=== PATIENT | male | born 1955 | race African-American/Black ===

== ENCOUNTER 2021-01-22 08:52 | Emergency (ER) | payer MEDICARE, SELFPAY ==
[2021-01-22 09:18] VITALS: BP 111/86; PULSE 86; RESP 16; TEMP 36.6; O2SAT 96
--- OUTSIDE RECORDS SUMMARY | 2021-01-22 09:19 | XMS_ITS ---
:1955 Author Care Team Providers Name Role Phone Smn, Physician Primary Care Provider Unavailable Allergies None recorded. Medications Name Status Start Date Stop Date ? ? acetaminophen 325 mg tablet Active ? Not available TAKE 1 TO 2 TABLETS BY MOUTH EVERY 8 HOURS NEEDED FOR PAIN Chantix Continuing Month Box 1 mg tablet Active ? Not available TAKE DIRECTED ON BOX. Chantix Starting Month Box 0.5 mg (11)-1 mg (42) tablets in dose pack Active ? Not available TAKE DIRECTED ON PACKAGE. ciclopirox 8 % topical solution Active ? Not available APPLY OVER TOE NAILS AT BEDTIME diclofenac 1 % topical gel Active ? Not a vailable APPLY SMALL AMOUNT TO AFFECTED AREA TWICE DAILY digoxin 250 mcg (0.25 mg) tablet Active ? Not available TAKE 1 TABLET BY MOUTH EVERY DAY Eliquis 5 mg tablet Active ? Not availabl e TAKE 1 TABLET BY MOUTH TWICE A DAY finasteride 5 mg tablet Active ? Not avai lable TAKE 1 TABLET BY MOUTH EVERY DAY Flovent HFA 110 mcg/actuation aerosol inhaler Active ? Not available INHALE ONE PUFF BY MOUTH TWICE A DAY metoprolol succinate ER 25 mg tablet,extended release 24 hr Acti ve ? Not available TAKE 2 TABLETS TWICE A DAY metoprolol succinate ER 50 mg tablet,extended release 24 hr Acti ve ? Not available TAKE 1 TABLET BY MOUTH TWICE A DAY omeprazole 20 mg capsule,delayed release Active ? Not available TAKE ONE CAPSUEL BY MOUTH TWICE PER DAY NEEDED ACID REFLUX O R HEARTBURN. ProAir HFA 90 mcg/actuation aerosol inhaler Active ? Not available INHALE 1 2 PUFFS VIA SPACER EVERY 4 6 HOURS NEEDED Saline Nasal 0.65 % spray aerosol Active ? Not available 1 2 SPRAYS EACH NOSTRIL EVERY 4 6 HOURS NEEDED Spiriva with HandiHaler 18 mcg and inhalation capsules Active ? Not available INHALE 2 PUFFS OF 1 CAPSULE DAILY Stiolto Respimat 2.5 mcg-2.5 mcg/actuation solution for inhalati on Active ? Not available INHALE 2 PUFFS BY MOUTH INTO THE LUNGS DAILY sulfamethoxazole 800 mg-trimethoprim 160 mg tablet Active ? Not available TAKE 1 TABLET BY MOUTH TWICE A DAY tamsulosin 0.4 mg capsule Active ? Not av ailable TAKE 1 CAPSULE BY MOUTH EVERY DAY Problems Name Status Onset Date Source ? 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 Procedures None recorded. Results Lab Results None recorded. Past Encounters 07/04/2020 Osteoarthritis of Right Knee Joint Sam Alvarez MD: [address] [place] [id number], Ph. Social History None recorded. Vaccine List None recorded. Plan of Care Reminders Provider Appointments None ? ? recorded. Lab None ? ? recorded. Referral None ? ? recorded. Procedures None ? ? recorded. Surgeries None ? ? recorded. Imaging None ? ? recorded. Vitals None recorded.
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
[2021-01-22 11:21] VITALS: BP 132/85; PULSE 69; RESP 18; TEMP 36.5; O2SAT 96
[2021-01-22] MEDS: diazePAM 5 MG TAB PO (12:19)
== END 2021-01-22 12:22 | disposition home or self-care (01) ==
PROVIDERS: Emergency Provider Physician Assistant
DX: S60.212A Contusion of left wrist, initial encounter (principal); S50.02XA Contusion of left elbow, initial encounter; S20.212A Contusion of left front wall of thorax, initial encounter; S16.1XXA Strain of muscle, fascia and tendon at neck level, initial encounter; V47.5XXA Car driver injured in collision with fixed or stationary object in traffic accident, initial encounter
CPT/HCPCS: 29125; 99284; 71046; 71100; 73080; 73110